=== PATIENT | female | born 1990 | race Caucasian/White ===

== ENCOUNTER 2017-09-29 11:07 | Emergency (ER) | payer OTHER ==
[~2017-09-29] VITALS: Ht 160 cm; Wt 74.4 kg
[~2017-09-29 11:07] MED LIST: ACCUNEB SO1.25 MG/1 INH; ALBUTEROL2.5 MG/0.1; AMOXICILLIN 50500 M1 PO; APAP/CODEINE ELI5 M1 OR; CIPRO HC OTIC S10 ML OTIC; CLARITIN10 MG PO; EAR DROPS15 ML OT; IBUPROFEN 600600 M1 PO; NAPROSYN500 MG PO; NOHOMEMEDICATIONS; NORCO 5-325 TA1 EACH PO; PENICILLIN VK250 MG PO; PENICILLIN VK500 M1 PO; PEPCID20 MG PO; PREDNISONE 20 M20 MG PO; TRAMADOL 50 MG50 MG PO; VENTOLIN HFA 1818 GM INH; ZANTAC 150MG T150 MG PO; ZOFRAN ODT4 MG PO; ZPAK PO
[2017-09-29] MEDS ORDERED: VENTOLIN HFA 1818 GM INH (11:27)
[2017-09-29] MEDS ORDERED: CLOTRIMAZOLE 1%15 G1 TOP (11:49)
== END 2017-09-29 12:14 | disposition home or self-care (01) ==
LOC: ER 11:07
DX: L40.9 Psoriasis, unspecified (principal); J45.909 Unspecified asthma, uncomplicated; F17.210 Nicotine dependence, cigarettes, uncomplicated; Z90.49 Acquired absence of other specified parts of digestive tract

== ENCOUNTER 2020-05-24 03:35 | Emergency (ER) | payer OTHER ==
[~2020-05-24] VITALS: Ht 160 cm; Wt 81.7 kg
[~2020-05-24 03:35] MED LIST changes: +CLOTRIMAZOLE 1%15 G1 TOP
[2020-05-24] MEDS ORDERED: PROAIR HFA8.5 GM INH (04:02)
[2020-05-24] MEDS ORDERED: MOBIC15 MG PO (05:28)
[2020-05-24 05:36] VITALS: BP 126/76
== END 2020-05-24 05:37 | disposition home or self-care (01) ==
LOC: ER 03:35
DX: S29.012A Strain of muscle and tendon of back wall of thorax, initial encounter (principal); J45.909 Unspecified asthma, uncomplicated; L40.9 Psoriasis, unspecified; F17.210 Nicotine dependence, cigarettes, uncomplicated; Z90.49 Acquired absence of other specified parts of digestive tract; Z79.899 Other long term (current) drug therapy; W10.8XXA Fall (on) (from) other stairs and steps, initial encounter; Y93.01 Activity, walking, marching and hiking; Y92.89 Other specified places as the place of occurrence of the external cause; Y99.8 Other external cause status